=== PATIENT | female | born 1955 | race Caucasian/White ===

== ENCOUNTER 2017-11-10 09:30 | Inpatient (IN) | payer OTHER ==
[~2017-11-10] VITALS: Ht 152.4 cm; Wt 80.7 kg
[2017-11-10] MEDS ORDERED: LIPIT PO (13:26)
[2017-11-10] MEDS ORDERED: COZAAR25 MG PO (13:26)
[2017-11-10] MEDS ORDERED: [UNRECOGNIZED DRUG - OTHER] PO (13:27)
[2017-11-18] MEDS ORDERED: LIPITOR20 MG PO (11:02)
[2017-11-18] MEDS ORDERED: HYDROCHLOROTH12.5 M1 PO (11:02)
== END 2017-11-19 16:00 | DRG 470 ==
LOC: O/R 11-17 05:00 → SURH 11-17 05:00 → SURG 11-17 07:00 → SURH 11-17 10:50
PROVIDERS: Orthopaedic Surgery
PROC: 0SRC0J9 Replacement of Right Knee Joint with Synthetic Substitute, Cemented, Open Approach (ICD-10-PCS; principal; 2017-11-17 07:00)
DX: M17.11 Unilateral primary osteoarthritis, right knee (principal); D62 Acute posthemorrhagic anemia; I10 Essential (primary) hypertension; Z53.1 Procedure and treatment not carried out because of patient's decision for reasons of belief and group pressure; E78.2 Mixed hyperlipidemia